=== PATIENT | female | born 1965 | race Caucasian/White ===

== ENCOUNTER 2017-08-03 08:24 | Day surgery (SDC) | payer OTHER ==
[~2017-08-03] VITALS: Ht 157.5 cm; Wt 72.6 kg
[~2017-08-03 08:24] MED LIST: BUPROPION150 M3 PO; LO LOESTRIN PO; MULTI VIT PO; OMEGA 3340 MG PO; TEA TREE PO
[2017-08-03 10:58] VITALS: BP 119/65
== END 2017-08-03 11:10 | disposition home or self-care (01) | DRG 951 ==
LOC: ENDO 08:24
PROVIDERS: ATTEND Surgery
PROC: 0DJD8ZZ Inspection of Lower Intestinal Tract, Via Natural or Artificial Opening Endoscopic (ICD-10-PCS; principal; 2017-08-03)
DX: Z12.11 Encounter for screening for malignant neoplasm of colon (principal)

== ENCOUNTER 2021-05-08 07:07 | Emergency (ER) | payer BC ==
[~2021-05-08] VITALS: Ht 157.5 cm; Wt 70.4 kg
[2021-05-08 07:51] LABS: HEMATOCRIT 39.7 % (37.0-47.0); HEMOGLOBIN 12.9 g/dl (12.0-16.0); IMMATURE GRANULOCYTES 0.3 % (0.0-5.0); MEAN CELL VOLUME 99.7 fL CALC (80.0-100.0); MEAN CORPUSCULAR HGB 32.4 pG CALC (26.0-32.0); MEAN CORPUSCULAR HGB CONC 32.5 g/dL CAL (32.0-36.0); NEUT# 4.53 thou/uL (2.00-7.15); RED BLOOD COUNT 3.98 mill/uL (4.20-5.60); RED CELL DISTRI WIDTH 12.9 % (11.5-15.5)
[2021-05-08 08:12] LABS: ALBUMIN 4.6 g/dL (3.2-5.0); ALKALINE PHOSPHATASE 88 u/l (38-126); BUN 17 mg/dL (7-17); BUN/CREATININE RATIO 19 (12-20 (CALC)); CHLORIDE 105 mmol/l (95-108); CREATININE 0.9 mg/dL (0.5-1.0); GFR > 60 ML/MIN (>=60 (CALC)); GFR FOR AFR.AMER. > 60 ML/MIN (>=60 (CALC)); SGOT/AST 26 u/l (14-36); SODIUM 137 mmol/l (137-146); TOTAL PROTEIN 7.5 g/dL (6.3-8.2)
[2021-05-08 08:13] LABS: ANION GAP 15 (6-22 (CALC)); BILIRUBIN, TOTAL 0.6 mg/dL (0.0-1.4); CARBON DIOXIDE 21 mmol/l (22-30)
[2021-05-08 08:24] LABS: MYOGLOBIN 30 ng/mL (0 - 62)
[2021-05-08 09:13] LABS: URINE BILIRUBIN - DIPSTICK NEGATIVE (NEGATIVE); URINE BLOOD DIPSTICK NEGATIVE (NEGATIVE); URINE COLOR YELLOW; URINE GLUCOSE - DIPSTICK NEGATIVE (NEGATIVE); URINE KETONE NEGATIVE (NEGATIVE); URINE LEUK ESTERASE TRACE (NEGATIVE); URINE PROTEIN - DIPSTICK NEGATIVE (NEG-TRACE); URINE SPECIFIC GRAVITY <=1.005; URINE UROBILINOGEN - DIPSTICK 0.2 E.U./dL (0.2)
[2021-05-08 09:19] LABS: URINE NITRITE - DIPSTICK NEGATIVE (Negative)
[2021-05-08] MEDS ORDERED: OXYBUTYNIN CHLOR5 M1 PO (14:54)
[2021-05-08 14:59] VITALS: BP 114/68
== END 2021-05-08 15:00 | disposition short-term general hospital (02) | DRG 72 ==
LOC: ED 07:07
PROVIDERS: Emergency Medicine
DX: G93.89 Other specified disorders of brain (principal); I10 Essential (primary) hypertension; F32.A Depression, unspecified
CPT/HCPCS: Q9967